=== PATIENT | male | born 1960 | race Caucasian/White ===

== ENCOUNTER 2017-05-29 15:44 | Emergency (ER) | payer MEDICAID ==
[~2017-05-29] VITALS: Ht 160 cm; Wt 49.9 kg
[~2017-05-29 15:44] MED LIST: ASPIRIN EC325 M1 PO; CIPRO 250MG TA250 MG PO; CLINORIL GENER200 MG PO; CLOPIDOGREL75 M2 PO; DOXYCYCLINE HY100 M3 PO; KEFLEX 500MG.500 MG PO; MECLIZINE 25MG25 MG PO; MEDROL 4MG. DOSE4 MG PO; NOMEDS *; NORCO 325 MG-51 TAB PO; PHENERGAN 25MG.25 M1 PO; ROBAFEN AC 10480 ML PO; TAMIFLU75 MG PO; VOLTAREN75 MG PO
--- OUTSIDE RECORDS SUMMARY | 2017-05-29 17:05 | External Medical Summary Rpt ---
Author Author , Organization [employer] Address Unknown Phone Unavailable Care Team Providers Care Globe Changer Name Role Phone [facility] [place], Unavailable Unavailable [facility] [facility], Unavailable Unavailable [facility] ALHAJERI, ALHAJERI Unavailable Unavailable ALHAJERI ABD, Unavailable Unavailable ALHAJERI ABD CHRISTOPHER HILDA, CHRISTOPHER HILDA Unavailable Unavailable Alex García MD, Unavailable Unavailable Alex Neal, ROMEL L Unavailable Unavailable MERRITT ALL, MERRITT ALL Unavailable Unavailable ADELA MANNING MD, Unavailable Unavailable ADELA CHOUDHURY TAMERA, CHOUDHURY Unavailable Unavailable TAMERA [facility] Unavailable Unavailable SERVICE, [facility] Unavailable Unavailable SERVICE, [facility], Unavailable Unavailable [facility] PETE JUS, PETE Unavailable Unavailable JUS GROVES TAS, GROVES Unavailable Unavailable TAS [facility] Unavailable Unavailable [facility], [facility] THURMAN WANDA, THURMAN WANDA Unavailable Unavailable [facility] KM NURSE Unavailable Unavailable PRACTITIONER GR, KMSF NURSE PRACTITIONER GR [facility], [facility] Unavailable Unavailable [facility] MANUEL CON, MANUEL CON Unavailable Unavailable CORONA SHA, CORONA Unavailable Unavailable SHA JIN KWA, JIN KWA Unavailable Unavailable LUCHO ELAN, LUCHO ELAN Unavailable Unavailable JAIMES VERONIQUE Unavailable Unavailable JULIA, JAIMES VERONIQUE JULIA [facility], Unavailable Unavailable [facility] RAMAIAH DIN, RAMAIAH Unavailable Unavailable D[facility] Unavailable Unavailable STEYN PIE, STEYN PIE Unavailable Unavailable TRUE RJ, TRUE RJ Unavailable Unavailable [facility], Unavailable Unavailable [facility] [employer] [facility], VAN Unavailable Unavailable [facility] [employer] [facility] LIZZY REMIGIO, LIZZY Unavailable Unavailable REMIGIO CAESAR EUG, CAESAR Unavailable Unavailable EUG Purpose Continuity of Care Document - 07-21-2013 through 2016 Problems Code Diagnosis DOS Provider Status I609 NONTRAUMATI 03-22-2016 [facility] D HEMORRHAGE UNSPECIFIED I671 CEREBRAL 03-22-2016 [place] [facility] ANEURYSM SERV NONRUPTURED [facility] R0602 SHORTNESS 03-22-2016 [facility] ASS R55 SYNCOPE AND 03-22-2016 [facility] COLL[facility]SE MEDICAL IM[facility]ING ASS Z8679 PERSONAL 01-26-2016 [place] [facility] OTH [facility] DISEASES [facility] CIRCULATORY SYSTEM 430 SUBARACHNOI 07-29-2015 [facility] HEMORRHAGE 4373 CEREBRAL 07-29-2015 [place] [facility] ANEUR[facility], SERV NONRUPTURED [facility] V1259 PERS HX, 07-29-2015 [facility] OTHER SERV DISEASES OF [facility] CIRCULATORY SYSTEM V1582 PERS HX 07-29-2015 [facility] TO[facility]AC[place] USE SERV PRESENTING [facility] 2768 HYPOPOTASSE 06-25-2015 S NURSE KRISTI PRACTITIONE R GR 4019 UNSPECIFIED 06-25-2015 [facility] NURSE ESSENTIAL PRACTITIONE HYPERTENSIO R GR N 431 INTRACEREBR 06-25-2015 [facility] HEMORRHAGE [facility] 12739 OTHER 06-25-2015 S NURSE CONVULSIONS PRACTITIONE R GR 2761 HYPOSMOLALI 06-24-2015 [place] [facility] T[facility] AND/OR SERV HYPONATREMI FOUNDATION A 2859 UNSPECIFIED 06-24-2015 [place] [facility] ANEMIA [facility] 2638 OTHER 06-23-2015 [facility] PROTEIN-DILCIA SERV ORIE [facility] MALNUTRITIO N 4378 OTHER 06-22-2015 [facility] I[facility]-DEFINED [facility] CEREBROVASC ULAR DISEASE V7189 OBSERVATION 06-22-2015 [facility] OTHER [facility] SPECIFIED [facility] SUSPECTED CONDITIONS 26358 ENCEPHALOPA 06-21-2015 [facility] THY, SERV UNSPECIFIED [facility] 4359 UNSPECIFIED 06-21-2015 [place] [facility]SIENT [facility] CEREBRAL [facility] ISCHEMIA 59104 OTHER 06-21-2015 [place] [facility] NONSPECIFIC SERV ABNORMAL [facility] FINDING OF LUNG FIELD 44790 OTHER 06-18-2015 [place] [facility] DISEASES OF SERV LUNG NOT FOUNDATION ELSEWHERE CLASSIFIED 83746 ALTERED 06-18-2015 [facility] NURSE MENTAL PRACTITIONE STATUS R GR V5881 FITTING AND 06-18-2015 [place] [facility] OF [facility] VASCULAR CATHETER 5180 PULMONARY 06-16-2015 [place] [facility] COLLAPSE [facility] 3485 CEREBRAL 06-14-2015 [place] [facility] EDEMA [facility] 4240 MITRAL 06-14-2015 [place] [facility] DISORDERS [facility] 4293 CARDIOMEGAL 06-14-2015 [facility] Y [facility] 496 CHRONIC 06-13-2015 [facility]CTION [facility] NEC 7231 CERVICALGIA 06-13-2015 [facility] 17814 OTHER 06-13-2015 [facility] AMBULANCE OF SERVICE CONSCIOUSNE SS 7840 HEADACHE 06-13-2015 [facility] 28435 INJURY OF 06-13-2015 [facility] F[facility] AND SERV NECK OTHER [facility] AND UNSPECIFIED E8889 UNSPECIFIED 06-13-2015 [facility] FALL [facility] V719 OBSERVATION 06-13-2015 [facility] UNSPECIFIED [facility]ING ASS SUSPECTED CONDITION 401.9 401.9 01-17-2014 [place] HYPERTEN[facility] NOS Hospital 413.9 413.9 01-17-2014 [place] ANGINA [facility] 824.8 824.8 FX 01-17-2014 [place] ANKLE [facility] E849.0 E849.0 01-17-2014 [place] ACCIDENT IN [facility] E927.0 E927.0 01-17-2014 [place] [facility] SUDDEN STRENUOUS MOVEMENT 461.9 461.9 ACUTE 07-21-2013 [place] SINUSITIS [facility] Allergies, Adverse Reactions, Alerts Type Allergy to substance Adverse Reaction to Substance Substance Reaction Severity NO KNOWN ALLERGIES Unknown Unknown Medications Na ND Rx Da Fi Fi Am Da Di Ph RX Ph St me C No te ll ll ou ys ag ar # ys at rm s nt no ma ic us Or Da si cy ia de te s n re d HM 62 01 02 30 30 00 EA Ac 01 -0 -[address] ti 10 5- 3- 00 00 SI ve PI 02 20 20 47 DE RI 00 17 17 13 N 1 55 PH 32 AR 5 MA MG CY TA OF BL CY ET NT HI AN A IN C CL 33 12 01 15 30 00 EA Ac OP 34 -2 -[address] ti ID 20 4- 0- 00 00 SI ve OG 06 20 20 42 DE RE 01 16 17 85 L 5 27 PH 75 AR MA MG CY TA OF BL CY ET NT HI AN A IN C Vital Signs 01-17-2014 15:12 Name Value Interpretat Reference Comment ion Range BP 97 mm[Hg] Diastolic BP Systolic 161 mm[Hg] Heart 111 /min Rate/Pulse O2% 98 % Respiratory 20 /min Rate 07-21-2013 12:29 Name Value Interpretat Reference Comment ion Range Body 98.0 [degF] Temperature BP 67 mm[Hg] Diastolic BP Systolic 128 mm[Hg] Heart 85 /min Rate/Pulse O2% 98 % Respiratory 18 /min Rate 07-21-2013 12:26 Name Value Interpretat Reference Comment ion Range BP 67 mm[Hg] Diastolic BP Systolic 128 mm[Hg] Heart 85 /min Rate/Pulse O2% 98 % Respiratory 18 /min Rate 07-21-2013 11:23 Name Value Interpretat Reference Comment ion Range BP 79 mm[Hg] Diastolic BP Systolic 121 mm[Hg] Heart 78 /min Rate/Pulse O2% 98 % Respiratory 18 /min Rate Results Labs Lab Lab Date Result Refere Interp Status Commen Order Detail nces retati t Range on COMPREHENSIVE METABOLIC PANEL (07-21-2013 11:20) Glucose 83 74-106 complet 013 mg/dL ed Bld-mCn 11:20 c BUN 7 mg/dL 7-18 complet Bld-mCn 013 ed c 11:20 Creat 0.8 0.8-1.3 complet SerPl-m 013 mg/dL ed Cnc 11:20 ESTIMAT 76 50-200 complet ED 013 ML/MIN ed CREATIN 11:20 INE CLEARAN CE GFR 102 Greater complet (ESTIMA 013 ML/MIN than ed CARIDAD) 11:20 60 Sodium 141 136-145 complet SerPl-s 013 mmoL/L ed Cnc 11:20 Potassi 3.7 3.5-5.1 complet um 013 mmoL/L ed SerPl-s 11:20 Cnc Chlorid 103 98-107 complet e 013 mmoL/L ed SerPl-s 11:20 Cnc CO2 32 21.0-32 complet SerPl-s 013 mmoL/L .0 ed Cnc 11:20 Calcium 8.3 8.5-10. complet 013 mg/dL 1 ed SerPl-m 11:20 Cnc Prot 7.9 6.4-8.2 complet SerPl-m 013 gm/dL ed Cnc 11:20 Albumin 3.7 3.4-5.0 complet 013 gm/dL ed SerPl-m 11:20 Cnc Globuli 07-21-2 4.2 1.3-3.2 complet n 013 gm/dL ed Ser-mCn 11:20 c Albumin 07-21-2 0.9 UNK 1.1-1.8 complet /Glob 013 ed SerPl-m 11:20 Rto Bilirub 07-21-2 0.3 0.2-1.0 complet 013 mg/dL ed SerPl-m 11:20 Cnc AST 07-21-2 54 U/L 15-37 complet SerPl-c 013 ed Cnc 11:20 ALT 07-21-2 44 U/L 30-65 complet SerPl-c 013 ed Cnc 11:20 ALP 07-21-2 87 U/L 50-136 complet SerPl-c 013 ed Cnc 11:20 CBC with AUTO DIFF (07-21-2013 11:20) WBC # 07-21-2 4.3 4.8-10. complet Bld 013 K/MM3 8 ed Auto 11:20 RBC # 07-21-2 4.06 4.6-6.2 complet Bld 013 M/mm3 ed Auto 11:20 Hgb 07-21-2 13.6 14.1-18 complet Bld-mCn 013 g/dL .0 ed c 11:20 Hct Fr 07-21-2 41.1 % 42.0-52 complet Bld 013 .0 ed 11:20 MCV RBC 07-21-2 101.4 82.2-97 complet 013 fl .8 ed 11:20 MCH RBC 07-21-2 33.5 pg 27-31.2 complet Qn 013 ed Auto 11:20 MEAN 2 33.0 31.8-35 complet CORPUSC 013 g/dl .4 ed ULAR 11:20 HGB CONC RDW RBC 07-21-2 12.7 % 11.5-17 complet Auto 013 .5 ed 11:20 Platele 07-21-2 243 142-424 complet t Bld 013 K/mm3 ed Ql 11:20 Manual MEAN 07-21-2 7.0 fl 7.4-10. complet PLATELE 013 4 ed T 11:20 VOLUME Granulo 07-21-2 38.9 % 37.0-80 complet cytes 013 .0 ed Fr Bld 11:20 Auto LYMPH % 08-27-2 45.0 % 10-50 complet 013 ed 11:20 Monocyt 08-27-2 9.4 % 1.7-9.3 complet es Fr 013 ed Bld 11:20 Auto Eosinop -27-2 5.2 % 0.1-12. complet hil Fr 013 0 ed Bld 11:20 Auto Basophi 0827-2 1.5 % 0.1-2.0 complet ls Fr 013 ed Bld 11:20 Auto Granulo -27-2 1.7 1.3-8.0 complet cytes # 013 K/mm3 ed Bld 11:20 Auto Lymphoc 27-2 2.0 0.7-4.5 complet ytes Fr 013 K/mm3 ed Bld 11:20 Auto Monocyt 08-27-2 0.4 0.1-1.0 complet es # 013 K/mm3 ed Bld 11:20 Auto Eosinop -27-2 0.2 0.0-0.4 complet hil # 013 K/mm3 ed Bld 11:20 Auto Basophi 27-2 0.1 0-0.2 complet ls # 013 K/MM3 ed Bld 11:20 Auto Procedures Procedure DOS Code Location Performer Comment RADIOLOGI 74038 [place] [facility] C EXAM 6 MEDICAL CHEST 2 IMAGING VIEWS ASS FRONTAL&L [facility] [address] [place] DISCHARGE 6 MEDICAL DAY SERV MANAGEMEN FOUNDATIO T 30 N MIN/< SLCTV 65234 [place] CATH 6 MEDICAL ABD INTRNL SERV CAROTID FOUNDATIO ART ANGIO N INTRCRNL ART TRANSCATH 33977 [place] ETER 6 MEDICAL ABD EMBOLIZAT SERV ION ANY FOUNDATIO METH RS&I N ANGRP 35745 [place] CATH F-UP 6 MEDICAL ABD STD TCAT SERV OTHER FOUNDATIO THAN N THROMBYLS IS ARTL [address]10 [place] STEYN PIE CATHJ/CAN 6 MEDICAL NULJ SERV MNTR/STACK FOUNDATIO SFUSION N SPX PRQ TCAT 03260 [place] PERMANENT 6 MEDICAL ABD SERV OCCLUSION FOUNDATIO /EMBOLIZA N TION PRQ DIRECTOR [facility] ANES ICRA 03-29-201 57426 [place] STEECTOR PIE 6 MEDICAL ICAR/AORT SERV IC THER FOUNDATIO IVNTL RAD N ARTL HEPATIC 29663 [facility] FUNCTION 6 Y [facility] BLOOD 55916 [facility] COUNT 6 Y Y [facility] HOSPITAL AUTOMATED PROTHROMB 13157 [facility] IN TIME 6 Y Y HOSPITAL HOSPITAL BASIC 57021 [facility] METABOLIC 6 Y [facility] CALCIUM TOTAL INFUSION J7030 [facility] NORMAL 6 Y Y [facility] SOLUTION 1000 CC THROMBOPL 68121 [facility] ASTIN 6 Y Y TIME [facility] PARTIAL PLASMA/WH OLE BLOOD CREATININ 23193 [facility] E BLOOD [address] [place] [address] [facility] ANGIOGRAP 6 Y Y HY HEAD [facility] HOSPITAL W/CONTRAS T/NONCONT RAST LOCM Q9967 [facility] 300-399 6 Y Y MG/ML HOSPITAL HOSPITAL IODINE CONCENTRA TION PER ML HOSPITAL [address] [place] DISCHARGE 6 MEDICAL DAY SERV MANAGEMEN FOUNDATIO T 30 N MIN/< ARTL 83213 [place] [facility] CATHJ/CAN 6 MEDICAL DIN NULJ SERV MNTR/STACK FOUNDATIO SFUSION N SPX PRQ ANES [facility] [address] [place] [facility] 6 MEDICAL DIN ICAR/AORT SERV IC THER FOUNDATIO IVNTL RAD N ARTL TCAT 97447 [place] PERMANENT 6 MEDICAL ABD SERV OCCLUSION FOUNDATIO /EMBOLIZA N TION PRQ DIRECTOR [facility] 3D 23935 [place] RENDERING 6 MEDICAL ABD SERV W/INTERP& FOUNDATIO POSTPROC N DIFF WORK STATION [facility] [address] [place] NOAHRI CATH F-UP 6 MEDICAL ABD STD TCAT SERV OTHER FOUNDATIO THAN N THROMBYLS IS SLCTV 38198 [place] CATH 6 MEDICAL ABD INTRNL SERV CAROTID FOUNDATIO ART ANGIO N INTRCRNL ART TRANSCATH 69982 CHRISTIANNE NESBITT ETER 6 MEDICAL ABD EMBOLIZAT SERV ION ANY FOUNDATIO METH RS&I N COLLECTIO 12164 [facility] 5 Y Y BLOOD [facility]OSPITAL HOSPITAL VENIPUNCT URE PLATELET 27000 [facility] AGGREGATI 5 Y Y ON IN HOSPITAL HOSPITAL VITRO EACH AGENT PLATELET 23441 [facility] AGGREGATI 5 Y Y ON IN HOSPITAL HOSPITAL VITRO EACH AGENT THROMBOPL 22489 [facility] ASTIN 5 Y Y TIME HOSPITAL HOSPITAL PARTIAL PLASMA/WH OLE BLOOD INFUSION J7030 [facility] NORMAL 5 Y [facility] SOLUTION 1000 CC BASIC 33902 [facility] METABOLIC 5 Y Y [facility]OSPITAL CALCIUM TOTAL INJECTION J1644 [facility] HEPARIN 5 Y Y [facility]PITAL PER 1000 UNITS PROTHROMB 88732 [facility] IN TIME 5 Y Y HOSPITAL HOSPITAL BLOOD 12421 [facility] COUNT 5 Y [facility]OSPITAL AUTOMATED 3D 37009 CHRISTIANNE DELICIA RENDERING 5 MEDICAL ABD SERV W/INTERP& FOUNDATIO POSTPROC N DIFF WORK STATION SLCTV 67879 CHRISTIANNE NESBITT CATH 5 MEDICAL ABD INTRNL SERV CAROTID FOUNDATIO ART ANGIO N INTRCRNL ART COLLECTIO 38388 [facility] N VENOUS 5 Y Y BLOOD HOSPITAL HOSPITAL VENIPUNCT URE BASIC 07406 [facility] 5 Y [facility] HOSPITAL CALCIUM TOTAL THROMBOPL 50528 [facility] ASTIN 5 Y Y TIME HOSPITAL HOSPITAL PARTIAL PLASMA/WH OLE BLOOD BLOOD 97063 [facility] COUNT 5 Y [facility]OSPITAL AUTOMATED PROTHROMB 92080 [facility] IN TIME 5 Y Y HOSPITAL HOSPITAL TRANSCRAN 07673 CHRISTIANNE MOSS IAL 5 MEDICAL JR LUT DOPPLER SERV STDY FOUNDATIO INTRACRAN N IAL ART LMTD SBSQ 52851 [facility] 5 MEDICAL JUS CARE/DAY SERV 25 FOUNDATIO MINUTES N SBSQ 00174 [facility] 5 NURSE SHA CARE/DAY PRACTITIO 25 NER GR MINUTES TRANSCRAN 61257 [place] AJAY IAL 5 MEDICAL JR LUT DOPPLER SERV STDY FOUNDATIO INTRACRAN N IAL ART LMTD TRANSCRAN 75299 [place] AJAY IAL 5 MEDICAL JR LUT DOPPLER SERV STDY FOUNDATIO INTRACRAN N IAL ART LMTD SBSQ [address]5960 [place] [address] MEDICAL CARE/DAY SERV 25 FOUNDATIO MINUTES N SBSQ 90708 [place] [address] MEDICAL CARE/DAY SERV 25 FOUNDATIO MINUTES N SBSQ 49256 [place] [address] MEDICAL JUS CARE/DAY SERV 15 FOUNDATIO MINUTES N TRANSCRAN 71886 [place] AJAY IAL 5 MEDICAL JR LUT DOPPLER SERV STDY FOUNDATIO INTRACRAN N IAL ART LMTD TRANSCRAN 68665 [place] AJAY IAL 5 MEDICAL JR LUT DOPPLER SERV STDY FOUNDATIO INTRACRAN N IAL ART LMTD CRITICAL 26480 [facility] 5 MEDICAL ILL/INJUR SERV ED FOUNDATIO PATIENT N INIT 30-74 MIN SBSQ 64177 [place] [address] MEDICAL JUS CARE/DAY SERV 15 FOUNDATIO MINUTES N RADIOLOGI 91475 [facility] 5 MEDICAL TAMERA EXAMINATI SERV ON CHEST FOUNDATIO SINGLE N VIEW FRONTAL RADIOLOGI 86791 [facility] 5 MEDICAL EXAMINATI SERV ON CHEST FOUNDATIO SINGLE N VIEW FRONTAL SBSQ 65165 [place] [address] MEDICAL JUS CARE/DAY SERV 15 FOUNDATIO MINUTES N CRITICAL 23052 [facility] 5 MEDICAL ILL/INJUR SERV ED FOUNDATIO PATIENT N INIT 30-74 MIN TRANSCRAN 28665 [place] AJAY IAL 5 MEDICAL JR LUT DOPPLER SERV STDY FOUNDATIO INTRACRAN N IAL ART LMTD TRANSCRAN 93251 [place] IAL 5 MEDICAL JR LUT DOPPLER SERV STDY FOUNDATIO INTRACRAN N IAL ART LMTD CRITICAL 75201 [facility] 5 MEDICAL ILL/INJUR SERV ED FOUNDATIO PATIENT N INIT 30-74 MIN SBSQ 59227 [facility] 5 MEDICAL JUS CARE/DAY SERV 15 FOUNDATIO MINUTES N RADIOLOGI 79935 [place] [facility] C 5 MEDICAL EXAMINATI SERV ON CHEST FOUNDATIO SINGLE N [place] FRONTAL TRANSCRAN 64487 [place] AJAY IAL 5 MEDICAL JR LUT DOPPLER SERV STDY FOUNDATIO INTRACRAN N IAL ART LMTD SBSQ 04389 [facility] 5 MEDICAL EARLY [employer] PSYCHOLOGIST CARE/DAY SERV 15 FOUNDATIO MINUTES N CRITICAL 12910 [facility] 5 NURSE SHA ILL/INJUR PRACTITIO ED NER GR PATIENT INIT 30-74 MIN SBSQ 39845 [facility] 5 MEDICAL EARLY [employer] PSYCHOLOGIST CARE/DAY SERV 15 FOUNDATIO MINUTES N INSJ 56504 [facility] 5 NURSE TAS LED PRACTITIO CENTRAL NER GR VENOUS CATH AGE 7 YR/> TRANSCRAN 46546 [place] AJAY IAL 5 MEDICAL JR LUT DOPPLER SERV STDY FOUNDATIO INTRACRAN N IAL ART LMTD RADIOLOGI 91633 [place] [facility] SHAWS C 5 MEDICAL EXAMINATI SERV ON CHEST FOUNDATIO SINGLE N VIEW FRONTAL CRITICAL 30994 [facility] 5 NURSE SHA ILL/INJUR PRACTITIO ED NER GR PATIENT INIT 30-74 MIN TRANSCRAN 87891 [place] AJAY IAL 5 MEDICAL JR LUT DOPPLER SERV STDY FOUNDATIO INTRACRAN N IAL ART LMTD SBSQ 70028 [facility] 5 MEDICAL JUS CARE/DAY SERV 15 FOUNDATIO MINUTES N SBSQ 78737 [facility] 5 MEDICAL JUS CARE/DAY SERV 15 FOUNDATIO MINUTES N ARTL 67772 [facility] CAESAR CATHJ/CAN 5 NURSE DEA NULJ PRACTITIO MNTR/STACK NER GR SFUSION SPX PRQ TRANSCRAN 41164 [place] AJAY IAL 5 MEDICAL JR LUT DOPPLER SERV STDY FOUNDATIO INTRACRAN N IAL ART LMTD RADIOLOGI 54497 [place] MANUEL CON C 5 MEDICAL EXAMINATI SERV ON CHEST FOUNDATIO SINGLE N VIEW FRONTAL RADIOLOGI 22201 [place] THURMAN WANDA C 5 MEDICAL EXAMINATI SERV ON CHEST FOUNDATIO SINGLE N VIEW FRONTAL TRANSCRAN 24423 [place] AJAY IAL 5 MEDICAL JR LUT DOPPLER SERV STDY FOUNDATIO INTRACRAN N IAL ART LMTD SBSQ 85861 [facility] 5 NURSE SHA CARE/DAY PRACTITIO 25 NER GR MINUTES SBSQ 48393 [place] [address] MEDICAL JUS CARE/DAY SERV 15 FOUNDATIO MINUTES N PRQ 92062 [place] TRANSCATH 5 MEDICAL ABD ETER SERV RTRVL FOUNDATIO INTRVAS N FB WITH IMAGING SBSQ 97400 [facility] 5 MEDICAL JUS CARE/DAY SERV 15 FOUNDATIO MINUTES N SLCTV 95633 [place] CATH 5 MEDICAL ABD VERTEBRAL SERV ART FOUNDATIO ANGIO N VERTEBRAL ARTERY ECHO 67525 [place] CHRISTOPHER HILDA TTHRC R-T 5 MEDICAL 2D SERV W/WOM-MOD FOUNDATIO E COMPL N SPEC&COLR D ANES ICRA 45833 [place] [facility] 5 MEDICAL ZOH ICAR/AORT SERVICES IC THER IVNTL RAD ARTL TCAT 99182 [place] PERMANENT 5 MEDICAL ABD SERV OCCLUSION FOUNDATIO /EMBOLIZA N TION PRQ DIRECTOR [facility] CRITICAL 16066 [place] [facility] 5 MEDICAL ILL/INJUR SERV ED FOUNDATIO PATIENT N INIT 30-[address] [place] [address] [place] JIN KWA HEAD/BRAI 5 MEDICAL N W/O SERV CONTRAST FOUNDATIO MATERIAL N SLCTV 24584 [place] CATH 5 MEDICAL ABD INTRNL SERV CAROTID FOUNDATIO ART ANGIO N INTRCRNL ART ANGRPH 43704 [place] CATH F-UP 5 MEDICAL ABD STD TCAT SERV OTHER FOUNDATIO THAN N THROMBYLS IS TRANSCATH 54500 [place] ETER 5 MEDICAL ABD EMBOLIZAT SERV ION ANY FOUNDATIO METH RS&I N RADIOLOGI 68658 [place] TRUE RJ C EXAM 5 MEDICAL CHEST 2 SERV VIEWS FOUNDATIO FRONTAL&L N ATERAL AMB A0427 [facility] 5 AMBULANCE AMBULANCE ALS SERVICE SERVICE [place] [address] [place] [address] [place] JAIMES ANGIOGRAP 5 MEDICAL VERONIQUE HY NECK SERV JULIA W/CONTRAS [place] [address] [place] LIZZY CERVICAL 5 MEDICAL REMIGIO SPINE W/O SERV CONTRAST FOUNDATIO MATERIAL N INITIAL 02819 [place] PETE INPATIENT 5 MEDICAL JUS CONSULT SERV NEW/ESTAB FOUNDATIO PT 110 N MIN GROUND A0425 [facility] AMBULANCE AMBULANCE [place] [address] [facility] DAWSON INFUSION 5 [facility] THER INC INC PROPH ADDL SEQUENTIA L TO 1 HR AMB A0431 [facility] 5 METHODS METHODS CONVNTION [facility] AIR SRVC TRAN[place] [address] [place] [address] [place] JAIMES ANGIOGRAP 5 MEDICAL VERONIQUE HY HEAD SERV JULIA W/CONTRAS FOUNDATIO T/NONCONT N RAST COMPREHEN 81932 [facility] DAWSON SIVE 5 [facility]OS[facility] METABOLIC INC INC PANEL TRANSCRAN 54347 [place] AJAY IAL 5 MEDICAL JR LUT DOPPLER SERV STDY FOUNDATIO INTRACRAN N IAL ART LMTD RADIOLOGI 46375 SAM[facility] DAWSON C 5 MEM HOS[facility] MEM HOSP EXAMINATI INC [place] [address] [facility] DAWSON HEAD/BRAI 5 [facility] N W/O INC INC CONTRAST MATERIAL CRITICAL 40470 ROMEL L ROMEL L CARE 5 ILL/INJUR ED PATIENT INIT 30-74 MIN BLOOD 00930 [facility] DAWSON COUNT 5 [facility] COMPLETE INC INC AUTO&[place] [address] [facility] DAWSON INFUSION 5 [facility] THERAPY/P INC INC ROPHYLAXI S /DX 1ST TO 1 HR ECG 22113 [place] AMARILYS CHI ROUTINE 5 MEDICAL ECG SERV W/LEAST FOUNDATIO 12 LDS N I&R ONLY ASSAY OF G6040 [facility] DAWSON ALCOHOL; 5 [facility] ANY INC INC SPECIMEN EXCEPT BREATH APPLICATI 93.54 ADELA ON OF NIGEL GREGORIO SPLINT Encounters Encounter Start End Date Code Location Performer Type Date OFFICE 18754 CHRISTIANNE ALVANDANAJERI OUTPATIEN 6 6 MEDICAL ABD T VISIT SERV 15 FOUNDATIO MINUTES [facility] UNIVERSIT - 6 6 Y [facility] T OFFICE 76969 CHRISTIANNE ALHAJERI [facility] 6 6 MEDICAL ABD T VISIT SERV 25 FOUNDATIO MINUTES [facility] UNIVERSIT - 6 6 Y [facility] UNIVERSIT - 5 5 Y [facility] UNIVERSIT - 5 5 Y [facility] T OFFICE 73307 CHRISTIANNE ALHAJERI OUTPATIEN 5 5 MEDICAL ABD T VISIT SERV 25 FOUNDATIO MINUTES [facility] UN[facility]ERSIT - 5 5 Y [facility] T OFFICE 62187 [facility] [place] 5 5 Y T VISIT 5 [facility] MINUTES OFFICE [id number] CHRISTIANNE PETE OUTPATIEN 5 5 MEDICAL JUS T VISIT SERV 15 FOUNDATIO MINUTES N EMERGENCY [id number] [facility] DEPT 5 5 [facility] V[facility]IT [facility] HIGH SEVERITY& THREAT [facility]IR - 5 5 [facility] OUT[facility] T Emergency JAY MANNING MD (ER) 4 14:36 4 15:20 [facility] Emergency JAY García MD (ER) 3 10:58 3 12:29 [facility]
--- OUTSIDE RECORDS SUMMARY | 2017-05-29 17:05 | External Medical Summary Rpt ---
Author Author , Organization [employer] Address Unknown Phone Unavailable Care Team Providers Care Auto Camp Attendant Name Role Phone [facility] [place], Unavailable [...] ADELA CHOUDHURY TAMERA, CHOUDHURY Unavailable Unavailable TAMERA [facility] Unavailable Unavailable SERVICE, [facility] Unavailable Unavailable SERVICE, [facility], Unavailable Unavailable [facility] PETE JUS, PETE Unavailable Unavailable JUS GROVES TAS, GROVES Unavailable Unavailable [facility] Un[facility] Un[facility], [facility] THURMAN WANDA, THURMAN WANDA Unavailable Unavailable [facility] KM NURSE Unavailable Unavailable PRACTITIONER GR, KMSF NURSE PRACTITIONER GR [facility] Unavailable Unavailable [facility] MANUEL CON, MANUEL CON [...] Unavailable TRUE RJ, TRUE RJ Unavailable Unavailable [facility], Unavailable Unavailable [facility] VAN LEWIS MAGNETIC PROSPECTING OPERATOR, VAN Unavailable Unavailable [facility] PROSPECT[facility] OPERATOR LIZZY REMIGIO, LIZZY Unavailable Unavailable REMIGIO CAESAR EUG, CAESAR Unavailable Unavailable EUG Purpose Continuity of Care Document - 07-21-2013 through 2016 Problems Code Diagnosis DOS Provider Status I609 NONTRAUMATI 03-22-2016 [facility] D HEMORRHAGE UNSPECIFIED I671 CEREBRAL 03-22-2016 [place] [facility] ANEURYSM SERV NONRUPTURED [facility] R0602 SHORTNESS 03-22-2016 [facility] R55 SYNCOPE AND 03-22-2016 [facility] COLLAPSE MEDICAL IMAGING ASS Z8679 PERSONAL 01-26-2016 [place] [facility] H[facility] OTH SERV DISEASES [facility] CIRCULATORY SYSTEM 430 SUBARACHNOI 07-29-2015 [facility] HEMORRHAGE 4373 CEREBRAL 07-29-2015 [place] [...] 06-25-2015 [facility] HEMORRHAGE [facility] 38113 OTHER 06-25-2015 S NURSE CONVULSIONS PRACTITIONE R GR 2761 HYPOSMOLALI 06-24-2015 [place] [facility] T[facility] AND/OR SERV HYPONATREMI FOUNDATION A 2859 UNSPECIFIED 06-24-2015 [place] [facility] ANEMIA [facility] 2638 OTHER 06-23-2015 [facility] PROTEIN-DILCIA SERV ORIE [facility] MALNUTRITIO N 4378 OTHER 06-22-2015 [facility] ILL-DEFINED SERV [facility] CEREBROVASC ULAR DISEASE V7189 OBSERVATION 06-22-2015 [place] [facility] OTHER [facility] SPECIFIED [facility] SUSPECTED CONDITIONS 63749 ENCEPHALOPA 06-21-2015 [facility] TH[facility], SERV UNSPECIFIED [facility]OUNDATION 4359 UNSPECIFIED 06-21-2015 [place] [facility] TRANSIENT [facility] CEREBRAL [facility] ISCHEMIA 24114 OTHER 06-21-2015 [place] [facility] NONSPECIFIC SERV ABNORMAL [facility] FINDING OF LUNG FIELD 05459 OTHER 06-18-2015 [place] [facility] DISEASES OF SERV LUNG NOT FOUNDATION ELSEWHERE CLASSIFIED 76621 ALTERED 06-18-2015 [facility] NURSE MENTAL PRACTITIONE STATUS R GR V5881 FITTING AND 06-18-2015 [place] [facility] OF [facility] VASCULAR CATHETER 5180 PULMONARY 06-16-2015 [place] [facility] COLLAPSE [facility] 3485 CEREBRAL 06-14-2015 [place] [facility] EDEMA [facility] 4240 MITRAL 06-14-2015 [facility] DISORDERS [facility] 4293 CARDIOMEGAL 06-14-2015 [facility] Y [facility] 496 CHRONIC 06-13-2015 [facility] NEC 7231 CERVICALGIA 06-13-2015 [facility] 16255 OTHER 06-13-2015 [facility] OF SERVICE CONSCIOUSNE SS 7840 HEADACHE 06-13-2015 [facility] [place] 99044 INJURY OF 06-13-2015 [facility] FACE AND SERV NECK OTHER FOUNDATION AND UNSPECIFIED E8889 UNSPECIFIED 06-13-2015 [facility] FALL [facility] V719 OBSERVATION 06-13-2015 [place] [facility] UNSPEC[facility]IED [facility] ASS SUSPECTED CONDITION 401.9 401.9 01-17-2014 [place] [address] [facility] NOS Hospital 413.9 413.9 01-17-2014 [place] ANGINA [facility] N[facility]NOS 824.8 824.8 FX 01-17-2014 [place] ANKLE [facility] E849.0 E849.0 01-17-2014 [place] ACCIDENT IN [facility] E927.0 E927.0 01-17-2014 [place] [facility] SUDDEN STRENUOUS MOVEMENT 461.9 461.9 ACUTE 07-21-2013 [place] SINUSITIS [facility] Allergies, Adverse Reactions, Alerts Type Allergy [...] Procedure DOS Code Location Performer Comment RADIOLOGI 24333 [place] [facility] ALL C EXAM 6 MEDICAL CHEST 2 IMAGING VIEWS ASS FRONTAL&L [facility] [address] [place] [facility] DISCHARGE 6 MEDICAL DAY SERV MANAGEMEN FOUNDATIO T 30 N MIN/< SLCTV 71571 [place] [facility] CATH 6 MEDICAL ABD INTRNL SERV CAROTID FOUNDATIO ART ANGIO N INTRCRNL ART TRANSCATH 88462 [place] [facility] ETER 6 MEDICAL ABD EMBOLIZAT SERV ION ANY FOUNDATIO METH RS&I N ANGRP 41826 [place] [facility] CATH F-UP 6 MEDICAL ABD STD TCAT SERV OTHER FOUNDATIO THAN N THROMBYLS IS ARTL 49967 [place] STEYN PIE CATHJ/CAN 6 MEDICAL NULJ SERV MNTR/STACK FOUNDATIO SFUSION N SPX PRQ TCAT 15973 [place] [facility] PERMANENT 6 MEDICAL ABD SERV OCCLUSION FOUNDATIO /EMBOLIZA N TION PRQ SONOGRAPHY TECHNOLOGIST ANES ICRA 03-29-201 41897 [place] STEECTOR PIE 6 MEDICAL ICAR/AORT SERV IC THER FOUNDATIO IVNTL RAD N ARTL HEPATIC 81374 [facility] FUNCTION 6 Y Y [facility] BLOOD 02451 [facility] COUNT 6 Y Y [facility] HOSP[facility] AUTOMATED PROTHROMB 32740 [facility] IN TIME 6 Y Y HOSPITAL [facility]PITAL BASIC 23449 [facility] METABOLIC 6 Y [facility] CALCIUM TOTAL INFUSION J7030 [facility] NORMAL 6 Y Y [facility] SOLUTION 1000 CC THROMBOPL 80292 [facility] ASTIN 6 Y Y TIME [facility] PARTIAL PLASMA/WH OLE BLOOD CREATININ 60993 [facility] E BLOOD [address] [place] [address] [facility] ANGIOGRAP 6 Y Y HY HEAD [facility] HOSPITAL W/CONTRAS T/NONCONT RAST LOCM Q9967 [facility] [phone] 6 Y Y MG/ML HOSPITAL HOSPITAL IODINE CONCENTRA TION PER ML HOSPITAL 58191 [place] [facility] DISCHARGE 6 MEDICAL DAY SERV MANAGEMEN FOUNDATIO T 30 N MIN/< ARTL 45960 [place] [facility] CATHJ/CAN 6 MEDICAL DIN NULJ SERV MNTR/STACK FOUNDATIO SFUSION N SPX PRQ ANES [facility] 25971 [place] [facility] 6 MEDICAL DIN ICAR/AORT SERV IC THER FOUNDATIO IVNTL RAD N ARTL TCAT 63673 [place] [facility] PERMANENT 6 MEDICAL ABD SERV OCCLUSION FOUNDATIO /EMBOLIZA N TION PRQ SONOGRAPHY TECHNOLOGIST 3D 12879 [place] [facility] RENDERING 6 MEDICAL ABD SERV W/INTERP& FOUNDATIO POSTPROC N DIFF WORK STATION [facility] 63273 [place] NOAHRI CATH F-UP 6 MEDICAL ABD STD TCAT SERV OTHER FOUNDATIO THAN N THROMBYLS IS SLCTV 67962 [place] CATH 6 MEDICAL ABD INTRNL SERV CAROTID FOUNDATIO ART ANGIO N INTRCRNL ART TRANSCATH 47516 CHRISTIANNE NESBITT ETER 6 MEDICAL ABD EMBOLIZAT SERV ION ANY FOUNDATIO METH RS&I N COLLECTIO 36405 [facility] N VENOUS 5 Y Y BLOOD HOSPITAL HOSPITAL VENIPUNCT URE PLATELET 28990 [facility] AGGREGATI 5 Y Y ON IN HOSPITAL HOSPITAL VITRO EACH AGENT PLATELET 61494 [facility] AGGREGATI 5 Y Y ON IN HOSPITAL HOSPITAL VITRO EACH AGENT THROMBOPL 85532 [facility] ASTIN 5 Y Y TIME HOSPITAL HOSPITAL PARTIAL PLASMA/WH OLE BLOOD INFUSION J7030 [facility] NORMAL 5 Y [facility] SOLUTION 1000 CC BASIC 18345 [facility] METABOLIC 5 Y [facility] CALCIUM TOTAL INJECTION J1644 [facility] HEPARIN 5 Y [facility] PER 1000 UNITS PROTHROMB 00787 [facility] IN TIME 5 Y Y HOSPITAL HOSPITAL BLOOD 54955 [facility] COUNT 5 Y [facility] AUTOMATED 3D 93613 CHRISTIANNE DELICIA RENDERING 5 MEDICAL ABD SERV W/INTERP& FOUNDATIO POSTPROC N DIFF WORK STATION SLCTV 89905 CHRISTIANNE NESBITT CATH 5 MEDICAL ABD INTRNL SERV CAROTID FOUNDATIO ART ANGIO N INTRCRNL ART COLLECTIO 91367 [facility] N VENOUS 5 Y Y BLOOD HOSPITAL HOSPITAL VENIPUNCT URE BASIC 87675 [facility] 5 Y [facility] CALCIUM TOTAL THROMBOPL 58918 [facility] ASTIN 5 Y Y TIME HOSPITAL HOSPITAL PARTIAL PLASMA/WH OLE BLOOD BLOOD 80911 [facility] COUNT 5 Y [facility] AUTOMATED PROTHROMB 59995 [facility] IN TIME 5 Y Y HOSPITAL HOSPITAL TRANSCRAN 64685 CHRISTIANNE MOSS IAL 5 MEDICAL JR LUT DOPPLER SERV STDY FOUNDATIO INTRACRAN N IAL ART LMTD SBSQ 32246 [facility] 5 MEDICAL JUS CARE/DAY SERV 25 FOUNDATIO MINUTES N SBSQ 61720 [facility] 5 NURSE SHA CARE/DAY PRACTITIO 25 NER GR MINUTES TRANSCRAN 11843 [place] [facility] IAL 5 MEDICAL JR LUT DOPPLER SERV STDY FOUNDATIO INTRACRAN N IAL ART LMTD TRANSCRAN 10380 [place] [facility] IAL 5 MEDICAL JR LUT DOPPLER SERV STDY FOUNDATIO INTRACRAN N IAL ART LMTD SBSQ 56200 [place] [address] MEDICAL CARE/DAY SERV 25 FOUNDATIO MINUTES N SBSQ 72883 [place] [address] MEDICAL CARE/DAY SERV 25 FOUNDATIO MINUTES N SBSQ 23963 [place] [address] MEDICAL JUS CARE/DAY SERV 15 FOUNDATIO MINUTES N TRANSCRAN 55806 [place] [facility] IAL 5 MEDICAL JR LUT DOPPLER SERV STDY FOUNDATIO INTRACRAN N IAL ART LMTD TRANSCRAN 79179 [place] [facility] IAL 5 MEDICAL JR LUT DOPPLER SERV STDY FOUNDATIO INTRACRAN N IAL ART LMTD CRITICAL 65252 [facility] 5 MEDICAL ILL/INJUR SERV ED FOUNDATIO PATIENT N INIT 30-74 MIN SBSQ 53625 [place] [address] MEDICAL JUS CARE/DAY SERV 15 FOUNDATIO MINUTES N RADIOLOGI 24649 [facility] 5 MEDICAL TAMERA EXAMINATI SERV ON CHEST FOUNDATIO SINGLE N VIEW FRONTAL RADIOLOGI 39198 [facility] 5 MEDICAL EXAMINATI SERV ON CHEST FOUNDATIO SINGLE N VIEW FRONTAL SBSQ 72643 [place] [address] MEDICAL JUS CARE/DAY SERV 15 FOUNDATIO MINUTES N CRITICAL 30126 [facility] 5 MEDICAL ILL/INJUR SERV ED FOUNDATIO PATIENT N INIT 30-74 MIN TRANSCRAN 96198 [place] [facility] IAL 5 MEDICAL JR LUT DOPPLER SERV STDY FOUNDATIO INTRACRAN N IAL ART LMTD TRANSCRAN 87341 [place] [facility] IAL 5 MEDICAL JR LUT DOPPLER SERV STDY FOUNDATIO INTRACRAN N IAL ART LMTD CRITICAL 38829 [facility] 5 MEDICAL ILL/INJUR SERV ED FOUNDATIO PATIENT N INIT 30-74 MIN SBSQ 88384 [facility] 5 MEDICAL JUS CARE/DAY SERV 15 FOUNDATIO MINUTES N RADIOLOGI 92358 [place] [facility] C 5 MEDICAL EXAMINATI SERV ON CHEST FOUNDATIO SINGLE N VIEW FRONTAL TRANSCRAN 40477 [place] [facility] IAL 5 MEDICAL JR LUT DOPPLER SERV STDY FOUNDATIO INTRACRAN N IAL ART LMTD SBSQ 88746 [facility] 5 MEDICAL MAGNETIC PROSPECTING OPERATOR CARE/DAY SERV 15 FOUNDATIO MINUTES N CRITICAL 37371 [facility] 5 NURSE SHA ILL/INJUR PRACTITIO ED NER GR PATIENT INIT 30-74 MIN SBSQ 93113 [facility] 5 MEDICAL MAGNETIC PROSPECTING OPERATOR CARE/DAY SERV 15 FOUNDATIO MINUTES N INSJ 20506 [facility] NURSE TAS LED PRACTITIO CENTRAL NER GR VENOUS CATH AGE 5 YR/> TRANSCRAN 90920 [place] [facility] IAL 5 MEDICAL JR LUT DOPPLER SERV STDY FOUNDATIO INTRACRAN N IAL ART LMTD RADIOLOGI 59311 [facility] 5 MEDICAL EXAMINATI SERV ON CHEST FOUNDATIO SINGLE N VIEW FRONTAL CRITICAL 03615 [facility] 5 NURSE SHA ILL/INJUR PRACTITIO ED NER GR PATIENT INIT 30-74 MIN TRANSCRAN 42593 [place] [facility] IAL 5 MEDICAL JR LUT DOPPLER SERV STDY FOUNDATIO INTRACRAN N IAL ART LMTD SBSQ 07737 [facility] 5 MEDICAL JUS CARE/DAY SERV 15 FOUNDATIO MINUTES N SBSQ 57045 [facility] 5 MEDICAL JUS CARE/DAY SERV 15 FOUNDATIO MINUTES N ARTL 26532 [facility] CAESAR CATHJ/CAN 5 NURSE DAE NULJ PRACTITIO MNTR/STACK NER GR SFUSION SPX PRQ TRANSCRAN 82084 [place] [facility] IAL 5 MEDICAL JR LUT DOPPLER SERV STDY FOUNDATIO INTRACRAN N IAL ART LMTD RADIOLOGI 02351 [place] [facility] CON C 5 MEDICAL EXAMINATI SERV ON CHEST FOUNDATIO SINGLE N VIEW FRONTAL RADIOLOGI 01580 [place] THURMAN WANDA C 5 MEDICAL EXAMINATI SERV ON CHEST FOUNDATIO SINGLE N VIEW FRONTAL TRANSCRAN 67385 [place] [facility] IAL 5 MEDICAL JR LUT DOPPLER SERV STDY FOUNDATIO INTRACRAN N IAL ART LMTD SBSQ 94240 [facility] 5 NURSE SHA CARE/DAY PRACTITIO 25 NER GR MINUTES SBSQ [address]3071 [place] [address] MEDICAL JUS CARE/DAY SERV 15 FOUNDATIO MINUTES N PRQ 36334 [place] [facility] TRANSCATH 5 MEDICAL ABD ETER SERV RTRVL FOUNDATIO INTRVAS N FB WITH IMAGING SBSQ 30840 [facility] 5 MEDICAL JUS CARE/DAY SERV 15 FOUNDATIO MINUTES N SLCTV 26322 [place] CATH 5 MEDICAL ABD VERTEBRAL SERV ART FOUNDATIO ANGIO N VERTEBRAL ARTERY ECHO 17547 [place] [facility] R-T 5 MEDICAL 2D SERV W/WOM-MOD FOUNDATIO E COMPL N SPEC&COLR D ANES ICRA 58425 [place] [facility] 5 MEDICAL ZOH ICAR/AORT SERVICES IC THER IVNTL RAD ARTL TCAT 20885 [place] PERMANENT 5 MEDICAL ABD SERV OCCLUSION FOUNDATIO /EMBOLIZA N TION PRQ SONOGRAPHY TECHNOLOGIST CRITICAL 68928 [facility] 5 MEDICAL ILL/INJUR SERV ED FOUNDATIO PATIENT N INIT 30-[place] [address] [place] [facility] HEAD/BRAI 5 MEDICAL N W/O SERV CONTRAST FOUNDATIO MATERIAL N SLCTV 88264 [place] CATH 5 MEDICAL ABD INTRNL SERV CAROTID FOUNDATIO ART ANGIO N INTRCRNL ART ANGRPH 76445 [place] CATH F-UP 5 MEDICAL ABD STD TCAT SERV OTHER FOUNDATIO THAN N THROMBYLS IS TRANSCATH 55761 [place] ETER 5 MEDICAL ABD EMBOLIZAT SERV ION ANY FOUNDATIO METH RS&I N RADIOLOGI 55425 [place] TRUE RJ C EXAM 5 MEDICAL CHEST 2 SERV VIEWS FOUNDATIO FRONTAL&L N ATERAL AMB A0427 [facility] 5 AMBULANCE AMBULANCE ALS SERVICE SERVICE [place] [address] [place] JAIMES ANGIOGRAP 5 MEDICAL VERONIQUE HY NECK SERV JULIA W/CONTR[place] [address] [place] LIZZY CERVICAL 5 MEDICAL REMIGIO SPINE W/O SERV CONTRAST FOUNDATIO MATERIAL N INITIAL 88364 [place] PETE INPATIENT 5 MEDICAL JUS CONSULT SERV NEW/ESTAB FOUNDATIO PT 110 N MIN GROUND A0425 [facility] AMBULANCE [place] [address] [facility] DAWSON INFUSION 5 [facility] THER INC INC PROPH ADDL SEQUENTIA L TO 1 HR AMB A0431 [facility] 5 METHODS METHODS CONVNTION [facility] AIR SRVC TRAN[place] [address] [place] [address] [place] JAIM[place] ANGIOGRAP 5 MEDICAL VERONIQUE HY HEAD SERV JULIA W/CONTRAS FOUNDATIO T/NONCONT N RAST COMPREHEN 24075 [facility]WSON SIVE 5 MEM HOS[facility] METABOLIC INC INC PANEL TRANSCRAN 54688 [place] [facility] IAL 5 MEDICAL JR LUT DOPPLER SERV STDY FOUNDATIO INTRACRAN N IAL ART LMTD RADIOLOGI 40423 [facility] DAWSON C 5 MEM HOSP MEM HOSP EXAMINATI INC [place] [address] [facility] DAWSON HEAD/BRAI 5 MEM HOS[facility]OS[facility] N W/O INC INC CONTRAST MATERIAL CRITICAL 84185 ROMEL L ROMEL L CARE 5 ILL/INJUR ED PATIENT INIT 30-74 MIN BLOOD 56648 [facility] DAWSON COUNT 5 [facility] COMPLETE INC INC AUTO&[place] W[place] [address] [facility] DAWSON INFUSION 5 [facility] THERAPY/P INC INC ROPHYLAXI S /DX 1ST TO 1 HR ECG 77740 [place] [facility] ROUTINE 5 MEDICAL ECG SERV W/LEAST FOUNDATIO 12 LDS N I&R ONLY ASSAY OF G6040 [facility] DAWSON ALCOHOL; 5 [facility] ANY INC INC SPECIMEN EXCEPT BREATH APPLICATI 93.54 ADELA ON OF NIGEL GREGORIO SPLINT Encounters Encounter Start End Date Code Location Performer Type Date OFFICE 22848 CHRISTIANNE ALVANDANAJERI OUTPATIEN 6 6 MEDICAL ABD T VISIT SERV 15 FOUNDATIO MINUTES [facility] UNIVERSIT - 6 6 Y [facility] T OFFICE 98606 [facility]ERI [facility] 6 6 MEDICAL ABD T VISIT SERV 25 FOUNDATIO MINUTES [facility] UNIVERSIT - 6 6 Y [facility] UNIVERSIT - 5 5 Y [facility] UNIVERSIT - 5 5 Y [facility] T OFFICE 96505 CHRISTIANNE ALHAJERI OUTPATIEN 5 5 MEDICAL ABD T VISIT SERV 25 FOUNDATIO MINUTES [facility] UNIVERSIT - 5 5 Y [facility] T OFFICE 64571 [facility] 5 5 Y T VISIT 5 [facility] MINUTES OFFICE 83155 CHRISTIANNE PEET OUTPATIEN 5 5 MEDICAL JUS T VISIT SERV 15 FOUNDATIO MINUTES N EMERGENCY 12796 [facility] DEPT 5 5 [facility] HOS[facility] VISIT INC HIGH SEVERITY& THREAT [facility] SAMIR - 5 5 [facility] OUTPATIEN INC T Emergency JAY MANNING MD (ER) 4 14:36 4 15:20 [facility] Emergency JAY García MD (ER) 3 10:58 3 12:29 [facility]
--- OUTSIDE RECORDS SUMMARY | 2017-05-29 17:06 | External Medical Summary Rpt ---
Demographics Preferred Language Pashto Marital Status Unknown Sikh Affiliation Unknown Race Unknown Ethnic Group Unknown Author Author , Organization [employer] Address Unknown Phone Unavailable Purpose Continuity of Care Document - through 2016 Immunization No patient found.
--- OUTSIDE RECORDS SUMMARY | 2017-05-29 17:06 | External Medical Summary Rpt ---
Author Author , Organization [employer] Address Unknown Phone Unavailable Care Team Providers Care Chief Scientist Name Role Phone [facility], Unavailable Unavailable [facility] [place] [facility] [place], Unavailable Unavailable [facility] [place] ALHAJERI, ALHAJERI Unavailable Unavailable ALHAJERI ABD, Unavailable Unavailable ALHAJERI ABD CHRISTOPHER HILDA, CHRISTOPHER HILDA Unavailable Unavailable BEINEKE ARAMIS, BEINEKE Unavailable Unavailable ARAMIS ROMEL L, ROMEL L Unavailable Unavailable MERRITT ALL, MERRITT ALL Unavailable Unavailable CHOUDHURY TAMERA, CHOUDHURY Unavailable Unavailable TAMER[facility] Unavailable Unavailable SERVICE, [facility] Unavailable Unavailable SERVICE, [facility], Unavailable Unavailable [facility] PETE JUS, PETE Unavailable Unavailable JUS GROVES TAS, GROVES Unavailable Unavailable TAS [facility] Un[facility] Un[facility], [facility] THURMAN WANDA, THURMAN WANDA Unavailable Unavailable [facility], [facility] KM NURSE Unavailable Unavailable PRACTITIONER GR, KMSF NURSE PRACTITIONER GR [facility], [facility] Unavailable Unavailable [facility] MANUEL CON, MANUEL CON Unavailable Unavailable LUKINS REYES, LUKINS Unavailable Unavailable REYES CORONA SHA, CORONA Unavailable Unavailable SHA JIN KWA, JIN KWA Unavailable Unavailable LUCHO ELAN, LUCHO ELAN Unavailable Unavailable JAIMES VERONIQUE Unavailable Unavailable JULIA, JAIMES VERONIQUE JULIA [facility], Unavailable Unavailable [facility] RAMAIAH DIN, RAMAIAH Unavailable Unavailable D[facility] Unavailable Unavailable STEYN PIE, STEYN PIE Unavailable Unavailable TRUE RJ, TRUE RJ Unavailable Unavailable [facility], Unavailable Unavailable [facility] VAN DEBBIE HAYS, VAN Unavailable Unavailable LEWIS SAÚL BALL CHA, LIZZY Unavailable Unavailable REMIGIO MALIN, CAESAR Unavailable Unavailable EUG Purpose Continuity of Care Document - 06-13-2015 through 2016 Problems Code Diagnosis DOS Provider Status I609 NONTRAUMATI 03-22-2016 [facility] D HEMORRHAGE UNSPECIFIED I671 CEREBRAL 03-22-2016 [place] [facility]EUR[facility] SERV NONRUPTURED [facility] R0602 SHORTNESS 03-22-2016 [place] [facility] R55 SYNCOPE AND 03-22-2016 [place] [facility] Z8679 PERSONAL 01-26-2016 [place] [facility] OTH [facility] DISEASES [facility] CIRCULATORY SYSTEM 430 SUBARACHNOI 07-29-2015 [facility] HEMORRHAGE 4373 CEREBRAL 07-29-2015 [place] [facility]EUR[facility], SERV NONRUPTURED [facility] V1259 PERS HX, 07-29-2015 [place] [facility] OTHER [facility] DISEASES OF [facility] CIRCULATORY SYSTEM V1582 PERS HX 07-29-2015 [place] [facility] TO[place]AC[place] USE SERV PRESENTING [facility] 2768 HYPOPOTASSE 06-25-2015 [facility] NURSE KRISTI PRACTITIONE R GR 4019 UNSPECIFIED 06-25-2015 [facility] NURSE ESSENTIAL PRACTITIONE HYPERTENSIO R GR N 431 INTRACEREBR 06-25-2015 [place] [facility] HEMORRHAGE [facility] 33004 OTHER 06-25-2015 [facility] NURSE CONVULSIONS PRACTITIONE R GR 2761 HYPOSMOLALI 06-24-2015 [place] [facility] TY AND/OR SERV HYPONATREMI [facility]OUNDATION A 2859 UNSPECIFIED 06-24-2015 [place] [facility] ANEMIA [facility] 2638 OTHER 06-23-2015 [place] [facility] PROTEIN-DILCIA SERV ORIE [facility] MALNUTRITIO N 4378 OTHER 06-22-2015 [place] [facility] ILL-DEFINED SERV [facility] CEREBROVASC ULAR DISEASE V7189 OBSERVATION 06-22-2015 [place] [facility] OTHER [facility] SPECIFIED [facility] SUSPECTED CONDITIONS 07992 ENCEPHALOPA 06-21-2015 [place] [facility] THY, SERV UNSPECIFIED [facility]OUNDATION 4359 UNSPECIFIED 06-21-2015 [place] [facility] TRANSIENT SERV CEREBRAL [facility] ISCHEMIA 40903 OTHER 06-21-2015 [place] [facility] NONSPECIFIC SERV ABNORMAL [facility] FINDING OF LUNG FIELD 56047 OTHER 06-18-2015 [place] [facility] DISEASES OF SERV LUNG NOT FOUNDATION ELSEWHERE CLASSIFIED 69498 ALTERED 06-18-2015 S NURSE MENTAL PRACTITIONE STATUS R GR V5881 FITTING AND 06-18-2015 [place] [facility] ADJUST[facility] OF [facility] VASCULAR CATHETER 5180 PULMONARY 06-16-2015 [place] [facility] COLLAPSE SERV [facility] 3485 CEREBRAL 06-14-2015 [place] [facility] EDEMA [facility] 4240 MITRAL 06-14-2015 [place] [facility] VAL[facility] DISORDERS [facility] 4293 CARDIOMEGAL 06-14-2015 [place] [facility] Y [facility] 496 CHRONIC 06-13-2015 [facility] OBSTRUCTION INC NEC 7231 CERVICALGIA 06-13-2015 [place] [facility] 76158 OTHER 06-13-2015 [facility] OF SERVICE CONSCIOUSNE SS 7840 HEADACHE 06-13-2015 [facility] [place] 30180 INJURY OF 06-13-2015 [place] [facility] FACE AND SERV NECK OTHER [facility]OUNDATION AND UNSPECIFIED E8889 UNSPECIFIED 06-13-2015 [place] [facility] FALL [facility] V719 OBSERVATION 06-13-2015 [place] [facility] UNSPECIFIED IMAGING ASS SUSPECTED CONDITION Medications Na ND Rx Da Fi Fi [...] ET NT HI AN A IN C Procedures Procedure DOS Code Location Performer Comment RADIOLOGI 85713 [place] MERRITT ALL C EXAM 6 MEDICAL CHEST 2 IMAGING VIEWS ASS FRONTAL&L [facility] 25937 [place] [facility] DISCHARGE 6 MEDICAL DAY SERV MANAGEMEN FOUNDATIO T 30 N MIN/< TRANSCATH 76040 [place] ETER 6 MEDICAL ABD EMBOLIZAT SERV ION ANY FOUNDATIO METH RS&I N ANGRPH 58978 [place] CATH F-UP 6 MEDICAL ABD STD TCAT SERV OTHER FOUNDATIO THAN N THROMBYLS IS ANES ICRA 20918 [place] STEYN PIE 6 MEDICAL ICAR/AORT SERV IC THER FOUNDATIO IVNTL RAD N ARTL SLCTV 87109 [place] CATH 6 MEDICAL ABD INTRNL SERV CAROTID FOUNDATIO ART ANGIO N INTRCRNL ART ARTL 50798 [place] [facility] P[facility] CATHJ/CAN 6 MEDICAL NULJ SERV MNTR/STACK FOUNDATIO SFUSION N SPX PRQ TCAT 47719 [place] PERMANENT 6 MEDICAL ABD SERV OCCLUSION FOUNDATIO /EMBOLIZA N TION PRQ POLYTECHNIC TEACHER HEPATIC 00569 [facility] FUNCTION 6 Y [facility] THROMBOPL 52270 [facility] ASTIN 6 Y Y TIME HOSPITAL HOSPITAL PARTIAL PLASMA/WH OLE BLOOD BASIC 60122 [facility] METABOLIC 6 Y [facility] CALCIUM TOTAL BLOOD 36831 [facility] COUNT 6 Y [facility] AUTOMATED PROTHROMB 82549 [facility] IN TIME 6 Y Y HOSPITAL HOSPITAL INFUSION J7030 [facility] NORMAL 6 Y Y [facility] SOL[place] [address] [place] [address] [place] [facility] ANGIOGRAP 6 MEDICAL REYES HY HEAD SERV W/CONTRAS FOUNDATIO T/NONCONT N RAST CREATININ 92479 [facility] E BLOOD 6 Y Y HOSPITAL HOSPITAL LOCM Q9967 [facility] [phone] Y Y MG/ML HOSPITAL HOSPITAL IODINE CONCENTRA TION PER ML HOSPITAL 31678 [place] ALHAJERI DISCHARGE 6 MEDICAL DAY SERV MANAGEMEN FOUNDATIO T 30 N MIN/< ARTL 76435 [place] [facility] CATHJ/CAN 6 MEDICAL DIN NULJ SERV MNTR/STACK FOUNDATIO SFUSION N SPX PRQ TCAT 16248 [place] AL[place]ER[place] PERMANENT 6 MEDICAL ABD SERV OCCLUSION FOUNDATIO /EMBOLIZA N TION PRQ POLYTECHNIC TEACHER SLCTV 18693 [place] CATH 6 MEDICAL ABD INTRNL SERV CAROTID FOUNDATIO ART ANGIO N INTRCRNL ART TRANSCATH 00034 [place] AL[place] ETER 6 MEDICAL ABD EMBOLIZAT SERV ION ANY FOUNDATIO METH RS&I N 3D 34626 [place] RENDERING 6 MEDICAL ABD SERV W/INTERP& FOUNDATIO POSTPROC N DIFF WORK STATION ANES ICRA 86443 [place] [facility] 6 MEDICAL DIN ICAR/AORT SERV IC THER FOUNDATIO IVNTL RAD N ARTL ANGRPH 18833 [place] AL[place]ER[place] CATH F-UP 6 MEDICAL ABD STD TCAT SERV OTHER FOUNDATIO THAN N THROMBYLS IS COLLECTIO 49493 [facility] VENOUS 5 Y [facility]LOOD [facility]OSPITAL VENIPUNCT URE PLATELET 71470 [facility] AGGREGATI 5 Y Y ON IN HOSPITAL HOSPITAL VITRO EACH AGENT THROMBOPL 73011 [facility] ASTIN 5 Y Y TIME HOSPITAL HOSPITAL PARTIAL PLASMA/WH OLE BLOOD BASIC 05562 [facility] METABOLIC 5 Y [facility] CALCIUM TOTAL BLOOD 98311 [facility] COUNT 5 Y [facility] AUTOMATED INFUSION J7030 [facility] NORMAL 5 Y [facility] SOLUTION 1000 CC PLATELET 25439 [facility] AGGREGATI 5 Y Y ON IN HOSPITAL HOSPITAL VITRO EACH AGENT PROTHROMB 93820 [facility] IN TIME 5 Y Y HOSPITAL HOSPITAL INJECTION J1644 [facility] HEPARIN 5 Y Y [facility] PER 1000 UNITS SLCTV 48083 [place] ALHAJELUC[place] CATH 5 MEDICAL ABD INTRNL SERV CAROTID FOUNDATIO ART ANGIO N INTRCRNL ART 3D 45824 [place] RENDERING 5 MEDICAL ABD SERV W/INTERP& FOUNDATIO POSTPROC N DIFF WORK STATION THROMBOPL 72928 [facility] ASTDE 5 Y Y TIME HOSPITAL HOSPITAL PARTIAL PLASMA/WH OLE BLOOD BASIC 84507 [facility] METABOLIC 5 Y [facility] CALCIUM TOTAL BLOOD 04620 [facility] COUNT 5 Y [facility] AUTOMATED COLLECTIO 30809 [facility] N VENOUS 5 Y Y BLOOD [facility]OSPITAL HOSPITAL VENIPUNCT URE PROTHROMB 11941 [facility] IN TIME 5 Y Y HOSPITAL HOSPITAL TRANSCRAN 53915 CHRISTIANNE MOSS IAL 5 MEDICAL JR LUT DOPPLER SERV STDY FOUNDATIO INTRACRAN N IAL ART LMTD SBSQ 94314 [facility] 5 MEDICAL JUS CARE/DAY SERV 25 FOUNDATIO MINUTES N SBSQ 40435 [facility] 5 NURSE SHA CARE/DAY PRACTITIO 25 NER GR MINUTES TRANSCRAN 23445 [place] AJAY IAL 5 MEDICAL JR LUT DOPPLER SERV STDY FOUNDATIO INTRACRAN N IAL ART LMTD TRANSCRAN 21609 [place] AJAY IAL 5 MEDICAL JR LUT DOPPLER SERV STDY FOUNDATIO INTRACRAN N IAL ART LMTD SBSQ 78479 [place] [address] MEDICAL CARE/DAY SERV 25 FOUNDATIO MINUTES N SBSQ 54297 [place] [address] MEDICAL CARE/DAY SERV 25 FOUNDATIO MINUTES N TRANSCRAN 65311 [place] AJAY IAL 5 MEDICAL JR LUT DOPPLER SERV STDY FOUNDATIO INTRACRAN N IAL ART LMTD SBSQ 27027 [place] [address] MEDICAL JUS CARE/DAY SERV 15 FOUNDATIO MINUTES N SBSQ 33435 [place] [address] MEDICAL JUS CARE/DAY SERV 15 FOUNDATIO MINUTES N RADIOLOGI 91267 [facility] 5 MEDICAL TAMERA EXAMINATI SERV ON CHEST FOUNDATIO SINGLE N VIEW FRONTAL TRANSCRAN 25432 [place] AJAY IAL 5 MEDICAL JR LUT DOPPLER SERV STDY FOUNDATIO INTRACRAN N IAL ART LMTD CRITICAL 56927 [facility] C[facility] 5 MEDICAL ILL/INJUR SERV ED FOUNDATIO PATIENT N INIT 30-74 MIN CRITICAL 30376 [facility] 5 MEDICAL ILL/INJUR SERV ED FOUNDATIO PATIENT N INIT 30-74 MIN TRANSCRAN 38478 [place] AJAY IAL 5 MEDICAL JR LUT DOPPLER SERV STDY FOUNDATIO INTRACRAN N IAL ART LMTD RADIOLOGI 24078 [place] [facility] C 5 MEDICAL EXAMINATI SERV ON CHEST FOUNDATIO SINGLE N VIEW FRONTAL SBSQ 21954 [place] [address] MEDICAL JUS CARE/DAY SERV 15 FOUNDATIO MINUTES N RADIOLOGI 56290 [place] THURMAN WANDA C 5 MEDICAL EXAMINATI SERV ON CHEST FOUNDATIO SINGLE N VIEW FRONTAL TRANSCRAN 44739 [place] AJAY IAL 5 MEDICAL JR LUT DOPPLER SERV STDY FOUNDATIO INTRACRAN N IAL ART LMTD SBSQ 88934 [facility] 5 MEDICAL JUS CARE/DAY SERV 15 FOUNDATIO MINUTES N CRITICAL 65545 [facility] 5 MEDICAL ILL/INJUR SERV ED FOUNDATIO PATIENT N INIT 30-74 MIN CRITICAL 54275 [facility] 5 NURSE SHA ILL/INJUR PRACTITIO ED NER GR PATIENT INIT 30-74 MIN SBSQ 74651 [facility] 5 MEDICAL CLASSROOM INSTRUCTIONAL AIDE CARE/DAY SERV 15 FOUNDATIO MINUTES N TRANSCRAN 72705 [place] AJAY IAL 5 MEDICAL JR LUT DOPPLER SERV STDY FOUNDATIO INTRACRAN N IAL ART LMTD TRANSCRAN 18526 [place] AJAY IAL 5 MEDICAL JR LUT DOPPLER SERV STDY FOUNDATIO INTRACRAN N IAL ART LMTD SBSQ 43539 [place] [address] MEDICAL CLASSROOM INSTRUCTIONAL AIDE CARE/DAY SERV 15 FOUNDATIO MINUTES N RADIOLOGI 24243 [place] [facility] C 5 MEDICAL EXAMINATI SERV ON CHEST FOUNDATIO SINGLE N VIEW FRONTAL CRITICAL 86196 [facility] 5 NURSE SHA ILL/INJUR PRACTITIO ED NER GR PATIENT INIT 30-74 MIN INSJ 02289 [place] [address] NURSE TAS LED PRACTITIO CENTRAL NER GR VENOUS CATH AGE 5 YR/> SBSQ 91981 [place] [address] MEDICAL JUS CARE/DAY SERV 15 FOUNDATIO MINUTES N TRANSCRAN 46577 [place] AJAY IAL 5 MEDICAL JR LUT DOPPLER SERV STDY FOUNDATIO INTRACRAN N IAL ART LMTD TRANSCRAN 28730 [place] AJAY IAL 5 MEDICAL JR LUT DOPPLER SERV STDY FOUNDATIO INTRACRAN N IAL ART LMTD SBSQ 31762 [facility] 5 MEDICAL JUS CARE/DAY SERV 15 FOUNDATIO MINUTES N RADIOLOGI 80602 [place] MANUEL CON C 5 MEDICAL EXAMINATI SERV ON CHEST FOUNDATIO SINGLE N VIEW FRONTAL ARTL 39706 [facility] CAESAR CATHJ/CAN 5 NURSE EUG NULJ PRACTITIO MNTR/STACK NER GR SFUSION SPX PRQ SBSQ 67165 [facility] 5 NURSE SHA CARE/DAY PRACTITIO 25 NER GR MINUTES RADIOLOGI 62481 [place] THURMAN WANDA C 5 MEDICAL EXAMINATI SERV ON CHEST FOUNDATIO SINGLE N VIEW FRONTAL SBSQ 97788 [place] [address] MEDICAL JUS CARE/DAY SERV 15 FOUNDATIO MINUTES N TRANSCRAN 28337 [place] AJAY IAL 5 MEDICAL JR LUT DOPPLER SERV STDY FOUNDATIO INTRACRAN N [place] PR[place] 00502 [place] ALHAJER[place] TRANSCATH 5 MEDICAL ABD ETER SERV RTRVL FOUNDATIO INTRVAS N FB WITH IMAGING SBSQ 62238 [facility] 5 MEDICAL JUS CARE/DAY SERV 15 FOUNDATIO MINUTES N SLCTV 03793 [place] CATH 5 MEDICAL ABD INTRNL SERV CAROTID [place]AT[place] [address] [place] JIN KWA HEAD/BRAI 5 MEDICAL N W/O SERV CONTRAST FOUNDATIO MATERIAL N ANES ICRA 68123 [place] [facility] 5 MEDICAL ZOH ICAR/AORT SERVICES IC THER IVNTL RAD ARTL TRANSCATH 01469 [place]ER[place] ETER 5 MEDICAL ABD EMBOLIZAT SERV ION ANY FOUNDATIO METH RS&I N ANGRPH 08768 [place] CATH F-UP 5 MEDICAL ABD STD TCAT SERV OTHER FOUNDATIO THAN N THROMBYLS IS ECHO 97005 [place] [facility] MEDICAL 2D SERV W/WOM-MOD FOUNDATIO E COMPL N SPEC&COLR D CRITICAL 37668 [place] [facility] 5 MEDICAL ILL/INJUR SERV ED FOUNDATIO PATIENT N INIT 30-74 MIN SLCTV 72643 [place] CATH 5 MEDICAL ABD VERTEBRAL SERV ART FOUNDATIO ANGIO N VERTEBRAL ARTERY TCAT 86167 [place] PERMANENT 5 MEDICAL ABD SERV OCCLUSION FOUNDATIO /EMBOLIZA N TION PRQ POLYTECHNIC TEACHER INITIAL 64248 CHRISTIANNE PETE INPATIENT 5 MEDICAL JUS CONSULT SERV NEW/ESTAB FOUNDATIO PT 110 N MIN GROUND A0425 [facility] MILEAGE 5 AMBULANCE AMBULANCE PER SERVICE SERVICE STATUTE MILE AMB A0427 [facility] SERVICE 5 AMBULANCE AMBULANCE ALS SERVICE SERVICE EMERGENCY TRANSPORT LEVEL 1 BLOOD 81140 [facility] COUNT 5 MEM H[facility] COMPLETE INC INC AUTO&AUTO DIFRNTL WBC AMB A0431 [facility] 5 METHODS METHODS CONVNTION [facility] AIR SRVC TRANSPORT [address] WAY [place]AY OF G6040 [facility] ALCOHOL; 5 [facility] HOS[facility] ANY INC INC SPECIMEN EXCEPT BREATH COMPREHEN 60095 [facility] SIVE 5 [facility]OS[facility] METABOLIC INC INC PANEL CRITICAL 11712 [facility] CARE 5 ILL/INJUR ED PAT[place] INIT 30-[place] [address] [facility] INFUSION 5 MEM HOS[facility] MEM HOSP THERAPY/P INC INC ROPHYLAXI S /DX 1ST TO 1 HR ECG 13695 [place] AM[facility] ROUTINE 5 MEDICAL ECG SERV W/LEAST FOUNDATIO 12 LDS N I&R ONLY RADIOLOGI 95552 [place] TRUE RJ C EXAM 5 MEDICAL CHEST 2 SERV VIEWS FOUNDATIO FRONTAL&[place] [address] [place] JAIMES ANGIOGRAP 5 MEDICAL VERONIQUE HY HEAD SERV JULIA W/CONTR[place] [address] [place] [facility] HEAD/BRAI 5 MEDICAL ARAMIS N W/O IMAGING CONTRAST ASS MATERIAL RADIOLOGI 52340 [place] [facility] C 5 MEDICAL ARAMIS EXAMINATI IMAGING ON CHEST ASS SINGLE VIEW FRONTAL TRANSCRAN 25780 [place] AJAY IAL 5 MEDICAL JR LUT DOPPLER SERV STDY [place]AT[place] [address] [place] JAIMES ANGIOGRAP 5 MEDICAL VERONIQUE HY NECK SERV JULIA W/CONTRAS [place] [address] [place] LIZZY CERVICAL 5 MEDICAL REMIGIO SPINE W/[place] [address] [facility] INFUSION 5 [facility] THER INC INC PROPH ADDL SEQUENTIA L TO 1 HR Encounters Encounter Start End Date Code Location Performer Type Date OFFICE 10388 [facility] [facility] 6 MEDICAL ABD T VISIT SERV 15 FOUNDATIO MINUTES [facility] - 6 6 Y [facility] T OFFICE 26901 [facility] 6 6 MEDICAL ABD T VISIT SERV 25 FOUNDATIO MINUTES [facility] - [address] [facility]ERSIT - [address] [facility] UNIVERSIT - 5 5 Y [facility] T OFFICE 23534 CHRISTIANNE [facility] 5 5 MEDICAL ABD T VISIT SERV 25 FOUNDATIO MINUTES N OFFICE 97932 [facility] 5 5 Y T VISIT 5 [facility] UN[facility]ERS[facility] - 5 5 Y [facility] T OFFICE 47784 [facility]NE [facility] 5 5 MEDICAL JUS T VISIT SERV 15 FOUNDATIO MINUTES [facility] - 5 5 MEM HOSP OUTPATIEN INC T EMERGENCY 91876 [facility] DEPT 5 5 [facility] HOS[facility] VISIT INC HIGH SEVERITY& THREAT FUNCJ
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
--- OUTSIDE RECORDS SUMMARY | 2017-05-29 17:06 | External Medical Summary Rpt ---
Author Author JEAN PAUL Pratt, JEAN PAUL Pratt Organization [employer] Address Unknown Phone Unavailable
--- OUTSIDE RECORDS SUMMARY | 2017-05-29 17:06 | External Medical Summary Rpt ---
Demographics Preferred Language Korean Marital Status Unknown Confucianism Affiliation Unknown Race Unknown Ethnic Group Unknown Author Author , Organization [employer] Address Unknown Phone Unavailable Purpose Continuity of Care Document - through 2016 Immunization No patient found.
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
[2017-05-29 19:15] VITALS: BP 136/82
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
--- NOTE | 2017-05-30 05:46 | RADIOLOGY REPORT PS360 ---
CT CERVICAL SPINE W/O CONT INDICATION: Neck pain following injury FALL, STRUCK HEAD ORDERING PHYSICIAN: Edward Armando MD PATIENT AGE: 57 years COMPARISON: None TECHNIQUE: Axial images are obtained without contrast. Sagittal and coronal reformatted images are reviewed as well. FINDINGS: Normal alignment. No fracture or dislocation. No prevertebral soft tissue swelling. There are bilateral mastoid effusions. Scattered small lymph nodes are present in the neck Emphysematous changes in the lung apices with bullous change IMPRESSION: 1. No acute fracture. 2. Bullous emphysematous changes
== END 2017-05-29 19:21 | disposition home or self-care (01) ==
LOC: ER 15:44
PROC: 0HQ0XZZ Repair Scalp Skin, External Approach (ICD-10-PCS; principal; 2017-05-29)
DX: S01.01XA Laceration without foreign body of scalp, initial encounter (principal); W01.0XXA Fall on same level from slipping, tripping and stumbling without subsequent striking against object, initial encounter; F10.129 Alcohol abuse with intoxication, unspecified; Z23 Encounter for immunization